=== PATIENT | female | born 1960 | race Caucasian/White ===

== ENCOUNTER 2019-09-18 17:57 | Emergency (ER) | payer OTHER ==
--- NOTE | 2019-09-18 18:29 | EDM.PDOC ---
ED HPI GENERAL MEDICAL PROBLEM - General Chief Complaint: General Stated Complaint: CHEST PAINS Time Seen by Provider: 09/18/19 18:25 Source of Information: Reports: Patient History Limitations: Reports: Other (no old records) - History of Present Illness INITIAL COMMENTS - FREE TEXT/NARRATIVE: 58 yo female with known hyperlipidemia not on tx presents with anxiety and L chest pain since last night. Is baby sitting 2 of her grandchildren in [place] while her daughter is in the hospital in [place] having a baby. Feels anxious. Is on no meds at all. Is a non-smoker. Her chest pain is not worse with exertion. No nausea, SOB, or diaphoresis. Had a stress test quite a few yrs ago that was neg. Onset: Gradual Onset Date: 09/17/19 Duration: Day(s): (1), Constant Location: Reports: Chest Quality: Reports: Dull Severity: Mild Improves with: Reports: None Worsens with: Reports: None Context: Reports: Other (See HPI) Associated Symptoms: Reports: Chest Pain. 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: Psychiatric History: Reports: Anxiety - Past Surgical History GI Surgical History: Reports: Cholecystectomy Female Surgical History: Reports: Tubal Ligation Social & Family History - Tobacco Use Smoking Status *Q: Never Smoker - Caffeine Use Caffeine Use: Reports: Coffee - Recreational Drug Use Recreational Drug Use: No ED ROS GENERAL - Review of Systems Review Of Systems: See Below Constitutional: Reports: No Symptoms HEENT: Reports: No Symptoms Respiratory: Reports: No Symptoms Cardiovascular: Reports: Chest Pain Endocrine: Reports: No Symptoms GI/Abdominal: Reports: No Symptoms : Reports: No Symptoms Musculoskeletal: Reports: No Symptoms Skin: Reports: No Symptoms Neurological: Reports: No Symptoms Psychiatric: Reports: Anxiety ED EXAM, GENERAL - Physical Exam Exam: See Below Exam Limited By: No Limitations General Appearance: Alert, WD/WN, No Apparent Distress, Anxious Eye Exam: Bilateral Eye: Normal Inspection Ears: Normal External Exam, Normal Canal, Hearing Grossly Normal Ear Exam: Bilateral Ear: Auricle Normal, Canal Normal Nose: Normal Inspection, Normal Mucosa, No Blood Throat/Mouth: Normal Inspection, Normal Lips, Normal Oropharynx, Normal Voice, No Airway Compromise Head: Atraumatic, Normocephalic Neck: Normal Inspection Respiratory/Chest: No Respiratory Distress, Lungs Clear, Normal Breath Sounds, No Accessory Muscle Use, Other (mild L chest wall tenderness). No: Chest Non- Tender Cardiovascular: Regular Rate, Rhythm, No Edema GI/Abdominal: Normal Bowel Sounds, Soft, Tender (epigastrium). No: Non-Tender, No Distention, Distended, Guarding, Rigid, Rebound Extremities: Normal Inspection, Normal Range of Motion, Non-Tender, No Pedal Edema Neurological: Alert, Oriented, CN II-XII Intact, Normal Cognition, No Motor/ Sensory Deficits Psychiatric: Normal Affect, Normal Mood Skin Exam: Warm, Dry, Intact, Normal Color, No Rash EKG INTERPRETATION EKG Date: 09/18/19 Time: 18:20 Rhythm: NSR Rate (Beats/Min): 78 [place]: Normal P-Wave: Present QRS: Normal ST-T: Normal QT: Normal Comparison: NA - No Prior EKG Course - Vital Signs Last Recorded V/S: Last Vital Signs Temp 35.8 C L 09/18/19 18:22 Pulse 69 09/18/19 19:14 Resp 16 09/18/19 18:22 BP 134/89 09/18/19 19:14 Pulse Ox 94 L 09/18/19 19:14 - Orders/Labs/Meds Orders: Active Orders 24 hr Category Date Time Status Cardiac Monitoring [RC] .As Directed Care 09/18/19 18:11 Active EKG Documentation Completion [RC] ASDIRECTED Care 09/18/19 18:11 Active EKG 12 Lead [EK] Routine Ther 09/18/19 18:11 Ordered Labs: Laboratory Tests 09/18/19 Range/Units 18:45 Troponin I < 0.017 (0.000-0.056) ng/mL Meds: Medications Discontinued Medications Generic Name Dose Route Start Last Admin Trade Name Freq PRN Reason Stop Dose Admin Al Hydroxide/Mg Hydroxide 15 0 ml 09/18/19 18:39 09/18/19 18:58 ml/ Lidocaine HCl 15 ml PO 09/18/19 18:40 30 ml ONETIME ONE Administration Famotidine 20 mg 09/18/19 19:21 Pepcid PO 09/18/19 19:22 ONETIME ONE Lorazepam 0.5 mg 09/18/19 18:39 09/18/19 18:55 Ativan PO 09/18/19 18:40 0.5 mg ONETIME ONE Administration Departure - Departure Time of Disposition: 19:30 Disposition: Home, Self-Care 01 Condition: Fair Clinical Impression: Anxiety, Chest wall pain Gastritis Qualifiers: Gastritis type: unspecified gastritis Chronicity: acute Gastritis bleeding: without bleeding Qualified Code(s): K29.00 - Acute gastritis without bleeding - Discharge Information *PRESCRIPTION DRUG MONITORING PROGRAM REVIEWED*: Not Applicable *COPY OF PRESCRIPTION DRUG MONITORING REPORT IN PATIENT STEPHANIE: Not Applicable Prescriptions: Famotidine 20 mg PO BEDTIME #30 tablet LORazepam [Lorazepam] 0.5 mg PO TID PRN #15 tablet PRN Reason: Anxiety Instructions: Gastritis, Adult, [id number], Living With Anxiety Referrals: PCP,None [Primary Care Provider] - Forms: ED Department Discharge Additional Instructions: Take famotidine every evening for your gastritis symptoms. Take acetaminophen as needed for pain relief, avoid ibuprofen, naproxen or aspirin as they can further upset your stomach. Use the lorazepam sparingly as needed for anxiety. Recheck with your doctor when you return home to discuss residential management of your anxiety symptoms. Sepsis Event Note - Evaluation Sepsis Screening Result: No Definite Risk - Focused Exam Vital Signs: Vital Signs Temp Pulse Resp BP Pulse Ox 09/18/19 19:14 69 134/89 94 L 09/18/19 18:22 35.8 C L 80 16 163/95 H 97 09/18/19 18:18 35.8 C L 80 16 163/95 H 97 Date Exam was Performed: 09/18/19 Time Exam was Performed: 19:25 - My Orders Last 24 Hours: My Active Orders 09/18/19 18:11 Cardiac Monitoring [RC] .As Directed EKG Documentation Completion [RC] ASDIRECTED EKG 12 Lead [EK] Routine - Assessment/Plan Last 24 Hours: My Active Orders 09/18/19 18:11 Cardiac Monitoring [RC] .As Directed EKG Documentation Completion [RC] ASDIRECTED EKG 12 Lead [EK] Routine
[2019-09-18] MEDS ORDERED: Alum Hydrox/Mag Hydrox/Simeth 15 ML, Lidocaine 2% 15 ML PO ONE ×2 (18:39)
[2019-09-18] MEDS ORDERED: LORazepam 0.5 MG Tab PO ONE (18:39)
[2019-09-18] MEDS ORDERED: Famotidine 20 MG Tab PO ONE (19:21)
== END 2019-09-18 19:40 | disposition home or self-care (01) ==
LOC: JP.ED 17:57
DX: F41.9 Anxiety disorder, unspecified (principal); R07.89 Other chest pain; K29.00 Acute gastritis without bleeding; Z88.5 Allergy status to narcotic agent
CPT/HCPCS: 36415; 84484; 93005; 99283; 99285; A9270; 93010